=== PATIENT | male | born 1960 | race Caucasian/White ===

== ENCOUNTER 2018-03-14 07:18 | Observation (INO) | payer OTHER ==
--- NOTE | 2018-03-11 09:10 | HP ---
CC: Dr. Alejandrina Mullen * ADMITTING HISTORY AND PHYSICAL: DATE OF ADMISSION: 03/14/18 ADMITTING DIAGNOSIS: Benign prostatic hypertrophy. PLANNED PROCEDURE: Transurethral resection of prostate. SURGEON: Dr. Milner. ADMITTING HISTORY AND PHYSICAL: Rober Ruiz is a 57-year-old gentleman with a longstanding history of problems related to prostate enlargement. He has been managed with Flomax 0.4 mg as well as Avodart 0.5 mg (which he has taken off and on for the last 7 to 8 years) and in spite of these medications, is complaining of difficulty urinating and also bothered by the side effects of the medications. I have discussed the procedure of transurethral resection of prostate in detail on several occasions with Mr. Ruiz including possible risks of bleeding, infection, urinary leakage, erectile and ejaculatory dysfunction including complete absence of ejaculation. He is frustrated with the results with the medications and would like to proceed with transurethral resection of prostate. PAST MEDICAL HISTORY: Essentially unremarkable, specifically there is no history of diabetes mellitus or any other major systemic illness. MEDICATIONS ON ADMISSION: 1. Flomax 0.4 mg once a day. 2. Avodart 0.5 mg once a day. ALLERGIES: No known drug allergies. REVIEW OF SYSTEMS: He denies any chest pain or shortness of breath. He is otherwise in fairly good health. PHYSICAL EXAMINATION GENERAL: Reveals a pleasant healthy-appearing middle-aged gentleman. VITAL SIGNS: Blood pressure is 130/82; pulse 81 per minute, regular; temperature 97.6; oxygen saturation 97% on room air. LUNGS: Clear bilaterally. CARDIOVASCULAR: Regular rate and rhythm. S1 and S2. ABDOMEN: Soft without masses. RECTAL: Recent rectal exam had revealed a moderately enlarged prostate without nodularity. IMPRESSION: Recent cystoscopy had revealed a normal-appearing urethra, significantly enlarged prostate especially the median lobe and multiple small bladder diverticula with no evidence of any bladder lesions. PLAN: Transurethral resection of prostate. [id number]/[facility] #: [id number] [facility]
[~2018-03-14 07:18] MED LIST: Buffered Lidocaine 0.9% SYRIN* 5 ML/SYR SYRINGE INTRADERM ONE; Dexamethasone IV* 4 MG/ML 1 ML (4 MG) IV SLOW PU ONE; Gentamicin ADULT (*) 160 MG in NS 0.9% 100 ML* 100 ML IVPB ONE; Metoclopramide IV* 5 MG/ML 2 ML VIAL IV SLOW PU ONE
[2018-03-14] MEDS ORDERED: Metoclopramide IV* 5 MG/ML 2 ML VIAL ONE (07:23)
[2018-03-14] MEDS ORDERED: Dexamethasone IV* 4 MG/ML 1 ML (4 MG) ONE (07:23)
[2018-03-14] MEDS ORDERED: cefTRIAXone(*) 2 GM ADDV.VIAL IVPB ONE (07:24)
[2018-03-14] MEDS ORDERED: Buffered Lidocaine 0.9% SYRIN* 5 ML/SYR SYRINGE ONE (07:25)
[2018-03-14] MEDS ORDERED: Midazolam* 1 MG/ML 2 ML VIAL (2 MG) ONE ×2 (08:40→10:46)
[2018-03-14] MEDS ORDERED: fentaNYL* 50 MCG/ML 2 ML VIAL (100 MCG VIAL) ONE (08:40)
[2018-03-14] MEDS ORDERED: Ondansetron INJ* 2 MG/ML VIAL IV PRN ×2 (08:53→10:01)
[2018-03-14] MEDS ORDERED: fentaNYL* 50 MCG/ML 2 ML VIAL (100 MCG VIAL) IV PRN (08:53)
[2018-03-14] MEDS ORDERED: HYDROmorphone INJ* 1 MG/ML CARPUJECT SYRINGE IV PRN (08:53)
[2018-03-14] MEDS ORDERED: Acetaminophen TAB* 325 MG PO PRN ×3 (08:53→14:51)
[2018-03-14] MEDS ORDERED: oxyCODONE TAB* 5 MG TAB PO PRN ×2 (08:53→10:01)
[2018-03-14] MEDS ORDERED: diPHENhydraMINE IV* 50 MG/ML 1 ml VIAL (BENADRYL) IV PRN ×2 (08:53→10:01)
[2018-03-14] MEDS ORDERED: PROCHLORPERAZINE INJ 5 MG/ML 2 ML VIAL IV PRN (08:53)
[2018-03-14] MEDS ORDERED: Naloxone* 0.4 MG/ML 1 ML VIAL IV PRN ×2 (08:53→10:01)
[2018-03-14] MEDS ORDERED: oxyCODONE/Acetamin 5/325 MG* TAB PO PRN ×2 (08:53→14:52)
[2018-03-14] MEDS ORDERED: Bupivacaine 0.5% PF 10 ML VIAL INJ ONE (09:15)
[2018-03-14] MEDS ORDERED: Propofol* 500 MG/50 ML BTL ONE (09:17)
[2018-03-14] MEDS ORDERED: Lidocaine 2% PF * 5 ML VIAL ONE (09:17)
[2018-03-14] MEDS ORDERED: Morphine PF AMP (0.5MG/ML)* 5 MG/10 ML AMP ONE (09:20)
[2018-03-14] MEDS ORDERED: Nalbuphine* 20 MG/ML 1 ML VIAL IV PRN (10:01)
[2018-03-14] MEDS ORDERED: Scopolamine 1.5 mg* PATCH TRANSDERM PRN (10:01)
[2018-03-14] MEDS ORDERED: Bupivacaine-MPF SPINAL* 7.5 MG/2 ML AMP ONE (10:16)
[2018-03-14] MEDS ORDERED: Lidocaine 2% PF* 10 ML AMP ONE (10:16)
[2018-03-14] MEDS ORDERED: Oxybutynin TAB* 5 MG PO PRN (14:53)
[2018-03-14] MEDS: Docusate CAP* 100 MG PO SCH (20:22)
--- NOTE | 2018-03-15 01:19 | OP ---
CC: Dr. Alejandrina Mullen * DATE OF OPERATION: 03/14/18 - ROOM #331 DATE OF : 58 SURGEON: Sp Milner MD ANESTHESIOLOGIST: Dr. Moise ANESTHESIA: Spinal PRE-OP DIAGNOSIS: Benign prostatic hypertrophy. POST-OP DIAGNOSIS: Benign prostatic hypertrophy. OPERATIVE PROCEDURE: Transurethral resection of prostate. COMPLICATION: None. BLOOD LOSS: Approximately 100 cc. POSTOPERATIVE CONDITION: Stable. CATHETER USED: 24-Indonesian 30 cc Munoz. INDICATIONS: Rober Ruiz is a 57-year-old gentleman with longstanding symptoms related to benign prostatic hypertrophy. He has been on chronic medical therapy for the BPH and he is frustrated with the results, and the side effects and is now being brought in for transurethral resection of prostate. I have discussed the procedure in detail on several occasions with Mr. Ruiz including possible risks of bleeding, infection, urinary and erectile dysfunction including incontinence and permanent retrograde ejaculation and he understands and wishes to proceed as planned. DESCRIPTION OF PROCEDURE: After induction of spinal anesthesia, the patient was placed in dorsal lithotomy position. Sequential compression devices were in place and functioning. A mild stricture was noted in the distal penile ureter which was carefully dilated. The remainder of the ureter was unremarkable. The prostate was enlarged and obstructing. The bladder was examined and was unremarkable. Next, transurethral resection of the prostate was carried out from the bladder neck down to the veru, the floor of the prostate was resected followed by the lateral lobe tissue and then anterior tissue. At no point was the resection carried distal to the veru in an effect to avoid any potential injury to the sphincter. The resected tissue was removed from the bladder using the Ellik evacuator and hemostasis appeared satisfactory at the end of the procedure. A 24 Indonesian 30 cc Munoz was introduced without difficulty. The patient tolerated the procedure satisfactorily and was transferred back to recovery area in stable condition. [id number]/[facility] #: [id number] MTDD
[2018-03-15 07:34] VITALS: BP 124/82
[2018-03-15] MEDS: Docusate CAP* 100 MG PO SCH (08:28)
[2018-03-15] MEDS ORDERED: Psyllium PAK PO SCH (09:00)
[2018-03-15] MEDS ORDERED: cefTRIAXone(*) 2 GM in NS 0.9% 100 ML* 100 ML IVPB ONE (09:00)
--- NOTE | 2018-03-16 13:22 | DS ---
DISCHARGE SUMMARY: DATE OF ADMISSION: 03/14/18 DATE OF DISCHARGE: 03/15/18 ADMITTING DIAGNOSIS: Benign prostatic hypertrophy. SURGICAL PROCEDURES ON THIS ADMISSION: Transurethral resection of prostate. ADMITTING HISTORY AND HOSPITAL COURSE: Rober Ruiz is a 57-year-old gentleman with longstanding history of voiding symptoms secondary to prostate enlargement. For details, please see admitting history and physical. On 03/14/18, Mr. Ruiz underwent transurethral resection of prostate under spinal anesthesia. Surgery was smooth and uneventful. He was monitored overnight and was evaluated in the morning on 03/15/18 and was discharged home with a Munoz catheter in place, to be followed up as an outpatient as per protocol. [id number]/[facility] #: [id number] MTDD
[2018-03-17] MEDS ORDERED: Scopolamine PATCH Remove* 1 NOTE MISC PATCH OFF PRN (10:02)
== END 2018-03-15 10:45 | disposition home or self-care (01) ==
LOC: OR 07:18 → SSU 14:29
PROVIDERS: ADMIT Urology; ATTEND Urology
PROC: 0VB00ZZ Excision of Prostate, Open Approach (ICD-10-PCS; principal; 2018-03-14 08:45)
DX: N40.1 Benign prostatic hyperplasia with lower urinary tract symptoms (principal)
CPT/HCPCS: 88305; 96374; 96375; A9270-GY; G0378; J0696; J1100; J1580; J2001; J2250; J2704; J2765; J3010